=== PATIENT | female | born 1960 | race Caucasian/White ===

== ENCOUNTER 2017-02-24 18:43 | Inpatient (IN) | payer BC ==
[~2017-02-24 18:43] MED LIST: ADULT LOW DOSE81 M1 PO; ALTACE10 M2 PO; BYSTOLIC5 M1 PO; CRESTOR20 M1 PO; CYMBALTA60 MG PO; DULOXETINE HCL60 MG PO; GABAPENTIN300 M1 PO; GABAPENTIN400 M3 PO; KEFLEX500 M1 PO; KEFLEX500 MG PO; KOMBIGLYZE XR1 EAC2 PO; LANTUS100 U/ML SC; LANTUS100 UNITS/; LANTUS100 UNITS/ SC; LOPRESSOR50 M1 PO; MAXZIDE 37.5 M1 EAC1 PO; MAXZIDE1 TAB PO; METOPROLOL TART25 M1 PO; NAPROXEN500 MG PO; NEURONTIN300 M1 PO; NORVASC10 M2 PO; NORVASC5 M2 PO; NOVOLOG100 UNIT/1 SC; NOVOLOG100 UNIT/2 SQ; NOVOLOG100 UNITS/ SC; OMEGA 31 CAP PO; PERCOCET 5/3251 TAB PO; POLYSACCHARIDE PO; POTASSIUM CHLO20 ME3 PO; SIMCOR 500-401 EACH PO; TORSEMIDE20 M2 PO; TRAMADOL HCL50 M2 PO; TYLENOL325 M1 PO; VALIUM5 MG PO; VANCOMYCIN HCL500 MG PO; VITAMIN B-6100 M1 PO; VITAMIN D35000 UNIT PO
[2017-02-24 19:15] LABS: BASO % 0.2 % (0-2); BASO ABSOLUTE COUNT 0.1 tho/cmm (0.0-0.2); EOS % 0.1 % (0-7); HCT-HEMATOCRIT 31.1 % (34.0-49.0); HGB-HEMOGLOBIN 10.6 gm/dl (12.0-15.5); IMMATURE GRANULOCYTES ABSOLUTE 0.26 tho/cmm (0-0.03); IMMATURE GRANULOCYTES PERCENT 1.2 % (0-0.3); LYMPH % 8.1 % (20-45); LYMPH ABSOLUTE COUNT 1.8 tho/cmm (0.8-4.5); MCH (MEAN CORPUSCULAR HGB) 28.4 pg (28.0-32.0); MCHC MEAN CORPUSCULAR HGB CONC 34.1 % (32.0-36.0); MCV (MEAN CELL VOLUME) 83.4 fl (82.0-96.0); MEAN PLATELET VOLUME 9.6 cmc (9.4-12.4); MONOCYTE ABSOLUTE COUNT 2.2 tho/cmm (0.0-1.2); NEUTROPHIL ABSOLUTE COUNT 17.7 tho/cmm (1.6-8.0); NEUTROPHIL-AUTOMATED 17.7 tho/cmm (1.6-8.0); NEUTROPHILS % 80.4 % (40-80); PLATELET COUNT 284 tho/cmm (150-450); RED BLOOD COUNT 3.73 mil/cmm (4.00-5.20); RED CELL DISTRIBUTION WIDTH 13.7 % (12.4-16.4)
[2017-02-24 19:19] LABS: URINE BILIRUBIN NEGATIVE (NEG); URINE BLOOD MODERATE (NEG); URINE GLUCOSE (UA) LARGE (NEG); URINE KETONE SMALL (NEG); URINE LEUKOCYTE ESTERASE NEGATIVE (NEG); URINE NITRITE NEGATIVE (NEG); URINE PROTEIN LARGE (NEG); URINE SPECIFIC GRAVITY 1.015 (1.003-1.030)
[2017-02-24 19:20] LABS: URINE APPEARANCE CLOUDY; URINE COLOR YELLOW
[2017-02-24 19:20] LABS: INR 1.1 INR (0.9-1.1); PROTHROMBIN TIME 12.5 SECONDS (9.0-13.6)
[2017-02-24 19:26] LABS: URINE WBC 0-3 /[HPF] (0-5)
[2017-02-24 19:27] LABS: URINE AMORPHOUS 4+; URINE EPITHELIAL CELLS 0-3 /[HPF] (0-10)
[2017-02-24 19:28] LABS: ALB/GLOB RATIO 0.3 (0.8-2.0); ALBUMIN 1.5 g/dl (3.5-5.0); ALKALINE PHOSPHATASE 108 U/L (33-138); ALT/SGPT 20 U/L (12-78); ANION GAP 19 mmol/L (0-20); AST/SGOT 28 U/L (10-40); BILIRUBIN,TOTAL 0.5 mg/dl (0-1.5); BLOOD UREA NITROGEN 36 mg/dl (6-24); CALCIUM 8.5 mg/dl (8.5-10.5); CARBON DIOXIDE-VENOUS 19 mmol/L (22-32); CHLORIDE 96 mmol/l (96-110); CREATININE 3.77 mg/dl (0.50-1.10); GLUCOSE 166 mg/dL (70-110); POTASSIUM 3.8 mmol/L (3.7-5.1); SODIUM 130 mmol/L (135-145); eGFR VALUE FOR BLACK 15 mL/Min
[2017-02-25 00:18] LABS: KETONE-BETA (WHOLE BLOOD) 1.8 mmol/L (0.0-0.6)
[2017-02-25 00:27] LABS: MAGNESIUM 1.5 mg/dl (1.8-2.6); PHOSPHOROUS 3.3 mg/dl (2.5-4.9)
[2017-02-25 01:12] LABS: PROCALCITONIN 13.87 ng/ml (0.05-0.09)
[2017-02-25 01:16] LABS: URINE PRT/CR RATIO 7.38 Ratio (0.0-0.20); URINE TOTAL PROTEIN-RANDOM 1285.8 mg/dl (<11.8)
[2017-02-25 02:54] LABS: BASO % 0.3 % (0-2); BASO ABSOLUTE COUNT 0.1 tho/cmm (0.0-0.2); HCT-HEMATOCRIT 30.6 % (34.0-49.0); HGB-HEMOGLOBIN 10.3 gm/dl (12.0-15.5); IMMATURE GRANULOCYTES ABSOLUTE 0.18 tho/cmm (0-0.03); IMMATURE GRANULOCYTES PERCENT 0.9 % (0-0.3); LYMPH ABSOLUTE COUNT 2.3 tho/cmm (0.8-4.5); MCH (MEAN CORPUSCULAR HGB) 28.6 pg (28.0-32.0); MCHC MEAN CORPUSCULAR HGB CONC 33.7 % (32.0-36.0); MEAN PLATELET VOLUME 9.7 cmc (9.4-12.4); MONO % 8.7 % (0-12); MONOCYTE ABSOLUTE COUNT 1.8 tho/cmm (0.0-1.2); NEUTROPHIL ABSOLUTE COUNT 16.6 tho/cmm (1.6-8.0); NEUTROPHIL-AUTOMATED 16.6 tho/cmm (1.6-8.0); NEUTROPHILS % 79.1 % (40-80); PLATELET COUNT 245 tho/cmm (150-450); RED CELL DISTRIBUTION WIDTH 14.1 % (12.4-16.4)
[2017-02-25 03:09] LABS: ANION GAP 20 mmol/L (0-20); BLOOD UREA NITROGEN 38 mg/dl (6-24); CALCIUM 7.3 mg/dl (8.5-10.5); CARBON DIOXIDE-VENOUS 16 mmol/L (22-32); CHLORIDE 100 mmol/l (96-110); CHOLESTEROL 149 mg/dl (120-200); CREATININE 3.88 mg/dl (0.50-1.10); HDL CHOLESTEROL 34 mg/dl (40-60); LDL CHOLESTEROL 84 mg/dl (0-99); MAGNESIUM 1.5 mg/dl (1.8-2.6); PHOSPHOROUS 4.7 mg/dl (2.5-4.9); POTASSIUM 4.1 mmol/L (3.7-5.1); SODIUM 132 mmol/L (135-145); VLDL 31 mg/dl (0-30); eGFR VALUE FOR BLACK 14 mL/Min
[2017-02-25 03:40] LABS: GLUCOSE 313 mg/dL (70-110); TRIGLYCERIDES 156 mg/dl (<149)
[2017-02-26 05:57] LABS: BASO % 0.3 % (0-2); BASO ABSOLUTE COUNT 0.1 tho/cmm (0.0-0.2); EOS % 1.2 % (0-7); EOSINOPHIL ABSOLUTE COUNT 0.3 tho/cmm (0.0-0.7); HCT-HEMATOCRIT 26.7 % (34.0-49.0); HGB-HEMOGLOBIN 9.1 gm/dl (12.0-15.5); IMMATURE GRANULOCYTES ABSOLUTE 0.19 tho/cmm (0-0.03); IMMATURE GRANULOCYTES PERCENT 0.9 % (0-0.3); LYMPH % 14.5 % (20-45); MCHC MEAN CORPUSCULAR HGB CONC 34.1 % (32.0-36.0); MCV (MEAN CELL VOLUME) 82.2 fl (82.0-96.0); MEAN PLATELET VOLUME 9.7 cmc (9.4-12.4); MONO % 7.4 % (0-12); MONOCYTE ABSOLUTE COUNT 1.5 tho/cmm (0.0-1.2); NEUTROPHIL ABSOLUTE COUNT 15.7 tho/cmm (1.6-8.0); NEUTROPHIL-AUTOMATED 15.7 tho/cmm (1.6-8.0); NEUTROPHILS % 75.7 % (40-80); PLATELET COUNT 268 tho/cmm (150-450); RED BLOOD COUNT 3.25 mil/cmm (4.00-5.20); WHITE BLOOD COUNT 20.7 tho/cmm (4.0-10.0)
[2017-02-26 06:10] LABS: ANION GAP 18 mmol/L (0-20); BLOOD UREA NITROGEN 43 mg/dl (6-24); CALCIUM 7.2 mg/dl (8.5-10.5); CARBON DIOXIDE-VENOUS 18 mmol/L (22-32); CHLORIDE 98 mmol/l (96-110); CREATININE 4.28 mg/dl (0.50-1.10); MAGNESIUM 2.2 mg/dl (1.8-2.6); PHOSPHOROUS 4.8 mg/dl (2.5-4.9); POTASSIUM 3.3 mmol/L (3.7-5.1); SODIUM 131 mmol/L (135-145); eGFR VALUE FOR BLACK 13 mL/Min
[2017-02-26 06:11] LABS: GLUCOSE 94 mg/dL (70-110)
[2017-02-26 09:34] LABS: IRON 38 ug/dl (37-170); IRON BINDING CAPACITY 130 ug/dl (250-450)
[2017-02-27 05:26] LABS: BASO % 0.6 % (0-2); BASO ABSOLUTE COUNT 0.1 tho/cmm (0.0-0.2); EOSINOPHIL ABSOLUTE COUNT 0.3 tho/cmm (0.0-0.7); HCT-HEMATOCRIT 27.5 % (34.0-49.0); HGB-HEMOGLOBIN 9.5 gm/dl (12.0-15.5); IMMATURE GRANULOCYTES ABSOLUTE 0.22 tho/cmm (0-0.03); IMMATURE GRANULOCYTES PERCENT 1.3 % (0-0.3); LYMPH % 15.8 % (20-45); LYMPH ABSOLUTE COUNT 2.6 tho/cmm (0.8-4.5); MCH (MEAN CORPUSCULAR HGB) 28.4 pg (28.0-32.0); MCHC MEAN CORPUSCULAR HGB CONC 34.5 % (32.0-36.0); MCV (MEAN CELL VOLUME) 82.3 fl (82.0-96.0); MEAN PLATELET VOLUME 9.4 cmc (9.4-12.4); MONO % 7.2 % (0-12); MONOCYTE ABSOLUTE COUNT 1.2 tho/cmm (0.0-1.2); NEUTROPHIL ABSOLUTE COUNT 11.9 tho/cmm (1.6-8.0); NEUTROPHIL-AUTOMATED 11.9 tho/cmm (1.6-8.0); NEUTROPHILS % 73.1 % (40-80); PLATELET COUNT 348 tho/cmm (150-450); RED BLOOD COUNT 3.34 mil/cmm (4.00-5.20); WHITE BLOOD COUNT 16.3 tho/cmm (4.0-10.0)
[2017-02-27 05:40] LABS: ALBUMIN 1.1 g/dl (3.5-5.0); ANION GAP 20 mmol/L (0-20); BLOOD UREA NITROGEN 47 mg/dl (6-24); CALCIUM 7.1 mg/dl (8.5-10.5); CARBON DIOXIDE-VENOUS 19 mmol/L (22-32); CHLORIDE 97 mmol/l (96-110); CREATININE 4.66 mg/dl (0.50-1.10); GLUCOSE 107 mg/dL (70-110); MAGNESIUM 2.2 mg/dl (1.8-2.6); POTASSIUM 3.5 mmol/L (3.7-5.1); SODIUM 132 mmol/L (135-145); eGFR VALUE FOR BLACK 11 mL/Min
[2017-02-27 05:43] LABS: PHOSPHOROUS 6.1 mg/dl (2.5-4.9)
[2017-02-28 04:38] LABS: BASO % 0.7 % (0-2); BASO ABSOLUTE COUNT 0.1 tho/cmm (0.0-0.2); EOS % 2.7 % (0-7); EOSINOPHIL ABSOLUTE COUNT 0.4 tho/cmm (0.0-0.7); HCT-HEMATOCRIT 25.7 % (34.0-49.0); HGB-HEMOGLOBIN 8.8 gm/dl (12.0-15.5); IMMATURE GRANULOCYTES ABSOLUTE 0.31 tho/cmm (0-0.03); IMMATURE GRANULOCYTES PERCENT 2.3 % (0-0.3); LYMPH % 17.1 % (20-45); LYMPH ABSOLUTE COUNT 2.3 tho/cmm (0.8-4.5); MCH (MEAN CORPUSCULAR HGB) 28.1 pg (28.0-32.0); MCHC MEAN CORPUSCULAR HGB CONC 34.2 % (32.0-36.0); MCV (MEAN CELL VOLUME) 82.1 fl (82.0-96.0); MEAN PLATELET VOLUME 8.7 cmc (9.4-12.4); MONO % 7.5 % (0-12); NEUTROPHIL ABSOLUTE COUNT 9.4 tho/cmm (1.6-8.0); NEUTROPHIL-AUTOMATED 9.4 tho/cmm (1.6-8.0); NEUTROPHILS % 69.7 % (40-80); PLATELET COUNT 373 tho/cmm (150-450); RED BLOOD COUNT 3.13 mil/cmm (4.00-5.20); RED CELL DISTRIBUTION WIDTH 14.3 % (12.4-16.4); WHITE BLOOD COUNT 13.5 tho/cmm (4.0-10.0)
[2017-02-28 04:49] LABS: ALBUMIN 1.4 g/dl (3.5-5.0); ANION GAP 18 mmol/L (0-20); BLOOD UREA NITROGEN 46 mg/dl (6-24); CALCIUM 7.3 mg/dl (8.5-10.5); CARBON DIOXIDE-VENOUS 18 mmol/L (22-32); CHLORIDE 100 mmol/l (96-110); CREATININE 4.53 mg/dl (0.50-1.10); GLUCOSE 112 mg/dL (70-110); PHOSPHOROUS 6.8 mg/dl (2.5-4.9); POTASSIUM 3.7 mmol/L (3.7-5.1); SODIUM 132 mmol/L (135-145); eGFR VALUE FOR BLACK 12 mL/Min
[2017-03-01 05:30] LABS: BASO ABSOLUTE COUNT 0.1 tho/cmm (0.0-0.2); EOS % 3.3 % (0-7); EOSINOPHIL ABSOLUTE COUNT 0.4 tho/cmm (0.0-0.7); HCT-HEMATOCRIT 25.7 % (34.0-49.0); HGB-HEMOGLOBIN 8.7 gm/dl (12.0-15.5); IMMATURE GRANULOCYTES ABSOLUTE 0.29 tho/cmm (0-0.03); IMMATURE GRANULOCYTES PERCENT 2.5 % (0-0.3); LYMPH % 18.8 % (20-45); LYMPH ABSOLUTE COUNT 2.2 tho/cmm (0.8-4.5); MCH (MEAN CORPUSCULAR HGB) 28.2 pg (28.0-32.0); MCHC MEAN CORPUSCULAR HGB CONC 33.9 % (32.0-36.0); MCV (MEAN CELL VOLUME) 83.4 fl (82.0-96.0); MEAN PLATELET VOLUME 8.7 cmc (9.4-12.4); MONO % 7.3 % (0-12); MONOCYTE ABSOLUTE COUNT 0.8 tho/cmm (0.0-1.2); NEUTROPHIL ABSOLUTE COUNT 7.7 tho/cmm (1.6-8.0); NEUTROPHIL-AUTOMATED 7.7 tho/cmm (1.6-8.0); NEUTROPHILS % 67.1 % (40-80); PLATELET COUNT 436 tho/cmm (150-450); RED BLOOD COUNT 3.08 mil/cmm (4.00-5.20); RED CELL DISTRIBUTION WIDTH 14.5 % (12.4-16.4); WHITE BLOOD COUNT 11.5 tho/cmm (4.0-10.0)
[2017-03-01 05:36] LABS: ALBUMIN 1.4 g/dl (3.5-5.0); ANION GAP 17 mmol/L (0-20); BLOOD UREA NITROGEN 48 mg/dl (6-24); CALCIUM 7.7 mg/dl (8.5-10.5); CARBON DIOXIDE-VENOUS 21 mmol/L (22-32); CHLORIDE 104 mmol/l (96-110); CREATININE 4.58 mg/dl (0.50-1.10); GLUCOSE 93 mg/dL (70-110); MAGNESIUM 2.7 mg/dl (1.8-2.6); PHOSPHOROUS 6.8 mg/dl (2.5-4.9); POTASSIUM 3.5 mmol/L (3.7-5.1); SODIUM 138 mmol/L (135-145); eGFR VALUE FOR BLACK 12 mL/Min
[2017-03-02 06:06] LABS: BASO % 1.3 % (0-2); BASO ABSOLUTE COUNT 0.2 tho/cmm (0.0-0.2); EOS % 3.1 % (0-7); EOSINOPHIL ABSOLUTE COUNT 0.4 tho/cmm (0.0-0.7); HCT-HEMATOCRIT 26.3 % (34.0-49.0); HGB-HEMOGLOBIN 8.7 gm/dl (12.0-15.5); IMMATURE GRANULOCYTES ABSOLUTE 0.36 tho/cmm (0-0.03); LYMPH % 21.3 % (20-45); LYMPH ABSOLUTE COUNT 2.6 tho/cmm (0.8-4.5); MCH (MEAN CORPUSCULAR HGB) 28.1 pg (28.0-32.0); MCHC MEAN CORPUSCULAR HGB CONC 33.1 % (32.0-36.0); MCV (MEAN CELL VOLUME) 84.8 fl (82.0-96.0); MEAN PLATELET VOLUME 8.4 cmc (9.4-12.4); MONO % 8.1 % (0-12); NEUTROPHIL ABSOLUTE COUNT 7.6 tho/cmm (1.6-8.0); NEUTROPHIL-AUTOMATED 7.6 tho/cmm (1.6-8.0); NEUTROPHILS % 63.2 % (40-80); PLATELET COUNT 472 tho/cmm (150-450)
[2017-03-02 06:20] LABS: ANION GAP 14 mmol/L (0-20); BLOOD UREA NITROGEN 44 mg/dl (6-24); CALCIUM 8.1 mg/dl (8.5-10.5); CARBON DIOXIDE-VENOUS 22 mmol/L (22-32); CHLORIDE 107 mmol/l (96-110); CREATININE 4.25 mg/dl (0.50-1.10); GLUCOSE 96 mg/dL (70-110); MAGNESIUM 2.6 mg/dl (1.8-2.6); PHOSPHOROUS 6.4 mg/dl (2.5-4.9); POTASSIUM 3.4 mmol/L (3.7-5.1); SODIUM 140 mmol/L (135-145); eGFR VALUE FOR BLACK 13 mL/Min
[2017-03-03 06:16] LABS: ANION GAP 15 mmol/L (0-20); BLOOD UREA NITROGEN 41 mg/dl (6-24); CALCIUM 8.2 mg/dl (8.5-10.5); CARBON DIOXIDE-VENOUS 23 mmol/L (22-32); CHLORIDE 110 mmol/l (96-110); CREATININE 3.85 mg/dl (0.50-1.10); MAGNESIUM 2.3 mg/dl (1.8-2.6); POTASSIUM 3.7 mmol/L (3.7-5.1); SODIUM 144 mmol/L (135-145); eGFR VALUE FOR BLACK 14 mL/Min
[2017-03-03 06:22] LABS: GLUCOSE 146 mg/dL (70-110)
[2017-03-04 06:31] LABS: BASO % 0.8 % (0-2); BASO ABSOLUTE COUNT 0.1 tho/cmm (0.0-0.2); EOS % 2.5 % (0-7); EOSINOPHIL ABSOLUTE COUNT 0.3 tho/cmm (0.0-0.7); HGB-HEMOGLOBIN 7.2 gm/dl (12.0-15.5); IMMATURE GRANULOCYTES ABSOLUTE 0.42 tho/cmm (0-0.03); IMMATURE GRANULOCYTES PERCENT 3.6 % (0-0.3); LYMPH % 21.8 % (20-45); LYMPH ABSOLUTE COUNT 2.6 tho/cmm (0.8-4.5); MCH (MEAN CORPUSCULAR HGB) 28.3 pg (28.0-32.0); MCV (MEAN CELL VOLUME) 88.2 fl (82.0-96.0); MEAN PLATELET VOLUME 7.9 cmc (9.4-12.4); MONO % 6.3 % (0-12); MONOCYTE ABSOLUTE COUNT 0.7 tho/cmm (0.0-1.2); NEUTROPHIL ABSOLUTE COUNT 7.7 tho/cmm (1.6-8.0); NEUTROPHIL-AUTOMATED 7.7 tho/cmm (1.6-8.0); PLATELET COUNT 377 tho/cmm (150-450); RED BLOOD COUNT 2.54 mil/cmm (4.00-5.20); RED CELL DISTRIBUTION WIDTH 15.4 % (12.4-16.4); WHITE BLOOD COUNT 11.8 tho/cmm (4.0-10.0)
[2017-03-04 06:41] LABS: HCT-HEMATOCRIT 22.4 % (34.0-49.0); MCHC MEAN CORPUSCULAR HGB CONC 32.1 % (32.0-36.0)
[2017-03-04 06:42] LABS: BLOOD UREA NITROGEN 32 mg/dl (6-24); CALCIUM 6.9 mg/dl (8.5-10.5); CARBON DIOXIDE-VENOUS 20 mmol/L (22-32); CHLORIDE 117 mmol/l (96-110); CREATININE 2.93 mg/dl (0.50-1.10); MAGNESIUM 1.7 mg/dl (1.8-2.6); PHOSPHOROUS 4.3 mg/dl (2.5-4.9); SODIUM 148 mmol/L (135-145); eGFR VALUE FOR BLACK 20 mL/Min
[2017-03-04 06:48] LABS: ANION GAP 14 mmol/L (0-20); GLUCOSE 71 mg/dL (70-110)
[2017-03-04 06:49] LABS: POTASSIUM 2.9 mmol/L (3.7-5.1)
[2017-03-04 13:09] LABS: HGB-HEMOGLOBIN 9.4 gm/dl (12.0-15.5)
[2017-03-04 15:59] LABS: ALBUMIN 1.7 g/dl (3.5-5.0); ANION GAP 11 mmol/L (0-20); BLOOD UREA NITROGEN 34 mg/dl (6-24); CALCIUM 8.4 mg/dl (8.5-10.5); CARBON DIOXIDE-VENOUS 26 mmol/L (22-32); CHLORIDE 112 mmol/l (96-110); CREATININE 3.48 mg/dl (0.50-1.10); GLUCOSE 76 mg/dL (70-110); PHOSPHOROUS 4.4 mg/dl (2.5-4.9); POTASSIUM 3.7 mmol/L (3.7-5.1); SODIUM 145 mmol/L (135-145); eGFR VALUE FOR BLACK 16 mL/Min
[2017-03-05 03:44] LABS: BASO % 0.9 % (0-2); BASO ABSOLUTE COUNT 0.1 tho/cmm (0.0-0.2); EOS % 3.1 % (0-7); EOSINOPHIL ABSOLUTE COUNT 0.4 tho/cmm (0.0-0.7); HCT-HEMATOCRIT 26.4 % (34.0-49.0); HGB-HEMOGLOBIN 8.4 gm/dl (12.0-15.5); IMMATURE GRANULOCYTES ABSOLUTE 0.34 tho/cmm (0-0.03); IMMATURE GRANULOCYTES PERCENT 2.4 % (0-0.3); LYMPH % 25.9 % (20-45); LYMPH ABSOLUTE COUNT 3.6 tho/cmm (0.8-4.5); MCH (MEAN CORPUSCULAR HGB) 28.1 pg (28.0-32.0); MCHC MEAN CORPUSCULAR HGB CONC 31.8 % (32.0-36.0); MCV (MEAN CELL VOLUME) 88.3 fl (82.0-96.0); MEAN PLATELET VOLUME 7.9 cmc (9.4-12.4); MONO % 5.9 % (0-12); MONOCYTE ABSOLUTE COUNT 0.8 tho/cmm (0.0-1.2); NEUTROPHIL ABSOLUTE COUNT 8.6 tho/cmm (1.6-8.0); NEUTROPHIL-AUTOMATED 8.6 tho/cmm (1.6-8.0); NEUTROPHILS % 61.8 % (40-80); PLATELET COUNT 489 tho/cmm (150-450); RED BLOOD COUNT 2.99 mil/cmm (4.00-5.20); RED CELL DISTRIBUTION WIDTH 15.5 % (12.4-16.4); WHITE BLOOD COUNT 13.9 tho/cmm (4.0-10.0)
[2017-03-05 03:53] LABS: ANION GAP 14 mmol/L (0-20); BLOOD UREA NITROGEN 32 mg/dl (6-24); CALCIUM 8.4 mg/dl (8.5-10.5); CARBON DIOXIDE-VENOUS 25 mmol/L (22-32); CHLORIDE 110 mmol/l (96-110); GLUCOSE 106 mg/dL (70-110); MAGNESIUM 2.4 mg/dl (1.8-2.6); PHOSPHOROUS 4.5 mg/dl (2.5-4.9); POTASSIUM 3.5 mmol/L (3.7-5.1); SODIUM 145 mmol/L (135-145); eGFR VALUE FOR BLACK 16 mL/Min
[2017-03-06 04:31] LABS: ALBUMIN 1.4 g/dl (3.5-5.0); ANION GAP 14 mmol/L (0-20); BLOOD UREA NITROGEN 32 mg/dl (6-24); CALCIUM 7.9 mg/dl (8.5-10.5); CARBON DIOXIDE-VENOUS 25 mmol/L (22-32); CHLORIDE 110 mmol/l (96-110); CREATININE 3.35 mg/dl (0.50-1.10); PHOSPHOROUS 4.1 mg/dl (2.5-4.9); POTASSIUM 3.2 mmol/L (3.7-5.1); SODIUM 146 mmol/L (135-145); eGFR VALUE FOR BLACK 17 mL/Min
[2017-03-06 04:40] LABS: GLUCOSE 62 mg/dL (70-110)
[2017-03-07 07:31] LABS: ANION GAP 12 mmol/L (0-20); BLOOD UREA NITROGEN 29 mg/dl (6-24); CALCIUM 8.1 mg/dl (8.5-10.5); CARBON DIOXIDE-VENOUS 24 mmol/L (22-32); CHLORIDE 112 mmol/l (96-110); POTASSIUM 3.6 mmol/L (3.7-5.1); SODIUM 144 mmol/L (135-145); eGFR VALUE FOR BLACK 19 mL/Min
[2017-03-07 07:42] LABS: GLUCOSE 119 mg/dL (70-110)
[2017-03-07 11:11] LABS: BASO % 1.1 % (0-2); BASO ABSOLUTE COUNT 0.1 tho/cmm (0.0-0.2); EOS % 3.1 % (0-7); EOSINOPHIL ABSOLUTE COUNT 0.4 tho/cmm (0.0-0.7); HCT-HEMATOCRIT 25.4 % (34.0-49.0); HGB-HEMOGLOBIN 8.1 gm/dl (12.0-15.5); IMMATURE GRANULOCYTES ABSOLUTE 0.14 tho/cmm (0-0.03); IMMATURE GRANULOCYTES PERCENT 1.2 % (0-0.3); LYMPH % 25.5 % (20-45); LYMPH ABSOLUTE COUNT 2.9 tho/cmm (0.8-4.5); MCH (MEAN CORPUSCULAR HGB) 28.3 pg (28.0-32.0); MCHC MEAN CORPUSCULAR HGB CONC 31.9 % (32.0-36.0); MCV (MEAN CELL VOLUME) 88.8 fl (82.0-96.0); MEAN PLATELET VOLUME 7.7 cmc (9.4-12.4); MONO % 4.9 % (0-12); MONOCYTE ABSOLUTE COUNT 0.6 tho/cmm (0.0-1.2); NEUTROPHIL ABSOLUTE COUNT 7.4 tho/cmm (1.6-8.0); NEUTROPHIL-AUTOMATED 7.4 tho/cmm (1.6-8.0); NEUTROPHILS % 64.2 % (40-80); PLATELET COUNT 386 tho/cmm (150-450); RED BLOOD COUNT 2.86 mil/cmm (4.00-5.20); WHITE BLOOD COUNT 11.5 tho/cmm (4.0-10.0)
[2017-03-07 13:58] LABS: ANION GAP 13 mmol/L (0-20); BLOOD UREA NITROGEN 28 mg/dl (6-24); CALCIUM 8.1 mg/dl (8.5-10.5); CARBON DIOXIDE-VENOUS 24 mmol/L (22-32); CHLORIDE 114 mmol/l (96-110); CREATININE 3.15 mg/dl (0.50-1.10); POTASSIUM 4.1 mmol/L (3.7-5.1); SODIUM 147 mmol/L (135-145); eGFR VALUE FOR BLACK 18 mL/Min
[2017-03-07 14:07] LABS: GLUCOSE 186 mg/dL (70-110)
[2017-03-08 05:12] LABS: BASO % 1.5 % (0-2); BASO ABSOLUTE COUNT 0.2 tho/cmm (0.0-0.2); EOS % 3.5 % (0-7); EOSINOPHIL ABSOLUTE COUNT 0.4 tho/cmm (0.0-0.7); HCT-HEMATOCRIT 26.1 % (34.0-49.0); HGB-HEMOGLOBIN 8.1 gm/dl (12.0-15.5); IMMATURE GRANULOCYTES ABSOLUTE 0.09 tho/cmm (0-0.03); IMMATURE GRANULOCYTES PERCENT 0.8 % (0-0.3); LYMPH % 23.8 % (20-45); LYMPH ABSOLUTE COUNT 2.7 tho/cmm (0.8-4.5); MCH (MEAN CORPUSCULAR HGB) 27.8 pg (28.0-32.0); MCV (MEAN CELL VOLUME) 89.7 fl (82.0-96.0); MEAN PLATELET VOLUME 8.1 cmc (9.4-12.4); MONO % 6.3 % (0-12); MONOCYTE ABSOLUTE COUNT 0.7 tho/cmm (0.0-1.2); NEUTROPHIL ABSOLUTE COUNT 7.4 tho/cmm (1.6-8.0); NEUTROPHIL-AUTOMATED 7.4 tho/cmm (1.6-8.0); NEUTROPHILS % 64.1 % (40-80); PLATELET COUNT 427 tho/cmm (150-450); RED BLOOD COUNT 2.91 mil/cmm (4.00-5.20); RED CELL DISTRIBUTION WIDTH 16.3 % (12.4-16.4); WHITE BLOOD COUNT 11.5 tho/cmm (4.0-10.0)
[2017-03-08 05:19] LABS: ALBUMIN 1.5 g/dl (3.5-5.0); ANION GAP 14 mmol/L (0-20); BLOOD UREA NITROGEN 29 mg/dl (6-24); CARBON DIOXIDE-VENOUS 23 mmol/L (22-32); CHLORIDE 111 mmol/l (96-110); CREATININE 3.06 mg/dl (0.50-1.10); GLUCOSE 172 mg/dL (70-110); PHOSPHOROUS 4.2 mg/dl (2.5-4.9); POTASSIUM 3.7 mmol/L (3.7-5.1); SODIUM 144 mmol/L (135-145); eGFR VALUE FOR BLACK 19 mL/Min
[2017-03-09 05:50] LABS: ANION GAP 13 mmol/L (0-20); BLOOD UREA NITROGEN 29 mg/dl (6-24); CALCIUM 8.1 mg/dl (8.5-10.5); CARBON DIOXIDE-VENOUS 22 mmol/L (22-32); CHLORIDE 113 mmol/l (96-110); CREATININE 3.11 mg/dl (0.50-1.10); GLUCOSE 171 mg/dL (70-110); POTASSIUM 3.9 mmol/L (3.7-5.1); SODIUM 144 mmol/L (135-145); eGFR VALUE FOR BLACK 19 mL/Min
[2017-03-09] MEDS ORDERED: CEFAZOLIN2000 MG/50 IV (13:47)
[2017-03-09] MEDS ORDERED: BYSTOLIC5 M1 PO (13:50)
[2017-03-09] MEDS ORDERED: TYLENOL325 M2 PO (13:56)
[2017-03-09] MEDS ORDERED: NEURONTIN300 M1 PO (13:57)
[2017-03-09] MEDS ORDERED: TORSEMIDE20 M2 PO (13:58)
[2017-03-09] MEDS ORDERED: CANASA1000 MG PR (14:00)
[2017-03-09] MEDS ORDERED: AMERICAINE28 GM TOP (14:03)
[2017-03-09] MEDS ORDERED: LANTUS100 UNITS/ SC (14:04)
[2017-03-09] MEDS ORDERED: VANCOMYCIN PO (14:06)
[2017-03-09] MEDS ORDERED: MICONAZOLE 2% TOP (14:50)
[2017-03-09] MEDS ORDERED: DILTIAZEM HCL TOP (14:54)
[2017-03-28] MEDS ORDERED: NOVOLOG100 UNITS/ SC (15:03)
[2017-04-13] MEDS ORDERED: ALTACE2.5 M3 PO (09:07)
== END 2017-03-09 17:15 | disposition home health service (06) | DRG 853 ==
LOC: EDMED 18:43 → EMR2 22:36 → 5WE 02-25 00:20 → CCU 02-25 11:29 → 5EB 02-26 18:00 → ORW 03-02 12:47 → 5EB 03-02 13:40
PROVIDERS: Emergency Medicine; Family Medicine; Internal Medicine; Internal Medicine Nephrology; ADMIT Hospitalist
PROC: 0HBNXZZ Excision of Left Foot Skin, External Approach (ICD-10-PCS; 2017-02-25)
PROC: 02HV33Z Insertion of Infusion Device into Superior Vena Cava, Percutaneous Approach (ICD-10-PCS; 2017-02-28)
PROC: 0JBR0ZZ Excision of Left Foot Subcutaneous Tissue and Fascia, Open Approach (ICD-10-PCS; 2017-03-02)
PROC: 0L9W0ZZ Drainage of Left Foot Tendon, Open Approach (ICD-10-PCS; principal; 2017-03-06)
DX: A41.01 Sepsis due to Methicillin susceptible Staphylococcus aureus (principal); G93.41 Metabolic encephalopathy; E43 Unspecified severe protein-calorie malnutrition; N17.9 Acute kidney failure, unspecified; A04.7 Enterocolitis due to Clostridium difficile; E87.2 Acidosis; N18.4 Chronic kidney disease, stage 4 (severe); L02.612 Cutaneous abscess of left foot; D62 Acute posthemorrhagic anemia; E11.52 Type 2 diabetes mellitus with diabetic peripheral angiopathy with gangrene; L03.116 Cellulitis of left lower limb; K62.5 Hemorrhage of anus and rectum; E87.0 Hyperosmolality and hypernatremia; E11.65 Type 2 diabetes mellitus with hyperglycemia; I25.10 Atherosclerotic heart disease of native coronary artery without angina pectoris; Z95.1 Presence of aortocoronary bypass graft; E78.5 Hyperlipidemia, unspecified; K60.2 Anal fissure, unspecified; I27.2 Other secondary pulmonary hypertension; I12.9 Hypertensive chronic kidney disease with stage 1 through stage 4 chronic kidney disease, or unspecified chronic kidney disease; E11.22 Type 2 diabetes mellitus with diabetic chronic kidney disease; I08.1 Rheumatic disorders of both mitral and tricuspid valves; Z68.34 Body mass index [BMI] 34.0-34.9, adult; E11.42 Type 2 diabetes mellitus with diabetic polyneuropathy; E11.621 Type 2 diabetes mellitus with foot ulcer; Z79.82 Long term (current) use of aspirin; M85.80 Other specified disorders of bone density and structure, unspecified site; Z79.4 Long term (current) use of insulin; D63.1 Anemia in chronic kidney disease; K57.90 Diverticulosis of intestine, part unspecified, without perforation or abscess without bleeding; K64.8 Other hemorrhoids; L89.629 Pressure ulcer of left heel, unspecified stage; E83.42 Hypomagnesemia; E87.6 Hypokalemia; E83.39 Other disorders of phosphorus metabolism
CPT/HCPCS: G8978-GP-CK; G8979-GP-CJ; J0171; J0690; J0885; J1650; J1815; J1940; J2250; J2543; J3010; J3370; J3411; J3475; J3480; J7030; J7040; J7050; P9047

== ENCOUNTER 2017-03-30 08:04 | Day surgery (SDC) | payer BC ==
[~2017-03-30 08:04] MED LIST changes: +AMERICAINE28 GM TOP; +CANASA1000 MG PR; +CEFAZOLIN2000 MG/50 IV; +DILTIAZEM HCL TOP; +MICONAZOLE 2% TOP; +TYLENOL325 M2 PO; +VANCOMYCIN PO
[2017-03-30] MEDS ORDERED: NORCO 5-325 TA1 EACH PO (15:43)
[2017-04-13] MEDS ORDERED: ALTACE2.5 M3 PO (09:07)
== END 2017-03-30 16:04 ==
LOC: SRG 08:04 → SHSC 08:09 → BURN 12:27
PROVIDERS: Nurse Practitioner Adult Health
PROC: 0Y6U0Z0 Detachment at Left 3rd Toe, Complete, Open Approach (ICD-10-PCS; principal; 2017-03-30)
DX: E11.621 Type 2 diabetes mellitus with foot ulcer (principal); I12.9 Hypertensive chronic kidney disease with stage 1 through stage 4 chronic kidney disease, or unspecified chronic kidney disease; E11.22 Type 2 diabetes mellitus with diabetic chronic kidney disease; N18.3 Chronic kidney disease, stage 3 (moderate); E11.319 Type 2 diabetes mellitus with unspecified diabetic retinopathy without macular edema; R60.0 Localized edema; M85.80 Other specified disorders of bone density and structure, unspecified site; I25.2 Old myocardial infarction; E78.5 Hyperlipidemia, unspecified; I25.10 Atherosclerotic heart disease of native coronary artery without angina pectoris; Z79.4 Long term (current) use of insulin; Z79.2 Long term (current) use of antibiotics; Z79.82 Long term (current) use of aspirin; Z79.899 Other long term (current) drug therapy; Z87.891 Personal history of nicotine dependence; Z90.49 Acquired absence of other specified parts of digestive tract; Z95.1 Presence of aortocoronary bypass graft; Z90.89 Acquired absence of other organs; Z98.890 Other specified postprocedural states
CPT/HCPCS: J1815; J2250; J3010; J3370; J7030